=== PATIENT | female | born 1995 | race Caucasian/White ===

== ENCOUNTER 2017-04-26 15:39 | Emergency (ER) | payer SELFPAY ==
[~2017-04-26] VITALS: Ht 154.9 cm; Wt 47.6 kg
[~2017-04-26 15:39] MED LIST: ACET-8386 PO
[2017-04-26 15:54] VITALS: BP 107/66
[2017-04-26 18:58] VITALS: BP 107/66
--- NOTE | 2017-04-26 18:59 | NUR ---
21 YO FEMALE BIB SELF FOR LEFT SHOULDER PAIN AWAKE AND ALERT STATES SHE FELL ON SHOULDER NO DEFORMITY NO SWELLING. TO OVERFOW FOR EXAM.
--- NOTE | 2017-04-26 19:00 | NUR ---
Patient discharged with v/s stable. Written and verbal after care instructions given and explained. Patient verbalized understanding. Ambulatory with steady gait. All questions addressed prior to discharge. Advised to follow up with PMD.
== END 2017-04-26 19:00 | disposition home or self-care (01) ==
LOC: MED 15:39
DX: S43.402A Unspecified sprain of left shoulder joint, initial encounter (principal); S16.1XXA Strain of muscle, fascia and tendon at neck level, initial encounter; Z90.89 Acquired absence of other organs; Z79.899 Other long term (current) drug therapy; X58.XXXA Exposure to other specified factors, initial encounter; Y93.89 Activity, other specified; Y92.89 Other specified places as the place of occurrence of the external cause; Y99.8 Other external cause status
CPT/HCPCS: 73030; 99284